=== PATIENT | male | born 1990 | race Caucasian/White ===

== ENCOUNTER 2022-10-10 11:27 | Emergency (ER) | payer MEDICAID, SELFPAY ==
[2022-10-10 11:57] VITALS: BP 134/87; PULSE 86; RESP 16; TEMP 36.8; O2SAT 99; BMI 21.6
--- NOTE | 2022-10-10 12:49 | US_ITS ---
WS: [id number] Exam: US gall bladder [id number] Date/Time of Exam: 10/10/2022 12:56 PM Reason For Exam: ruq pain The gallbladder is unremarkable. The common bile duct is not dilated and measures 1.6 mm at greatest diameter. Normal-appearing liver and right kidney. The pancreas is unremarkable. US/US gall bladder [id number] IMPRESSION: 1. Normal gallbladder ultrasound.
--- NOTE | 2022-10-10 12:49 | ED_ITS ---
HPI - Abdominal Pain General: Chief Complaint: Abdominal Pain Stated Complaint: N/V abd pain that comes and goes Time Seen by Provider: 10/10/22 12:44 Source: patient Mode of arrival: ambulatory Limitations: no limitations History of Present Illness: 32-year-old male states he had some lower abdominal pain and left lower quadrant he states his been much worse after he eats. He states he states it is sharp cramping pain right for eats its been lasting for 2 to 3 minutes that typically subsides he denies any pain currently had no fever no dysuria he had some slight vomiting and diarrhea. Associated Symptoms: Denies chills, diarrhea, fever(s), nausea and vomiting Review of Systems Const: Denies: fever(s), chills, body aches or change in appetite Eyes: Denies: blurry vision or eye discomfort ENMT: Reports: throat pain and dental pain Card: Denies: chest pain Resp: Denies: dyspnea GI: Reports: abdominal pain; Denies: nausea, vomiting or diarrhea Musc: Denies: neck pain or back pain Skin/Breast: Denies: rash Neuro: Denies: headache(s) PFSH ED PFSH: Social History Current gender identity: Male Physical Exam Const: COMMON NORMALS: no acute distress, patient oriented x3 and healthy appearing HENMT: COMMON NORMALS: normocephalic and atraumatic HEAD & SCALP: normocephalic and atraumatic Neck/C-Spine: COMMON NORMALS: full ROM and supple Chest: COMMONS NORMALS: normal inspection of the chest and normal palpation of entire chest wall Resp: COMMON NORMALS: normal respiratory effort, No retractions, No use of accessory muscles and clear to auscultation bilaterally AUSCULTATION: clear to auscultation bilaterally Cardio: COMMON NORMALS: regular rate, regular rhythm and No murmurs present (Cardio) RATE: regular rate RHYTHM: regular rhythm GI: COMMON NORMALS: Normal to inspection, nondistended, normoactive bowel rosibel nds present, Soft to palpation, non-tender and no masses PALPATION: Yes Soft to palpation Extremity: COMMON NORMALS: normal to inspection and full ROM Neuro: COMMON NORMALS: patient oriented x3, moves all extremities and no focal motor deficits Psych: COMMON NORMALS: mental status grossly normal, Normal thought process present and cooperative THOUGHT PROCESS: Normal thought process present Skin: COMMON NORMALS: no rashes or lesions noted and no wounds GENERAL SKIN EXAM: no rashes or lesions noted Course Vital Signs: Vital signs: Vital Signs Temperature 98.2 F 10/10/22 11:57 Pulse Rate 89 10/10/22 14:43 Respiratory Rate 17 10/10/22 14:30 Blood Pressure 135/84 10/10/22 14:43 Pulse Oximetry 99 10/10/22 14:43 Oxygen Delivery Me thod Room Air 10/10/22 13:13 MDM - Abdominal Pain Medical Decision Making Patient presents here with abdominal pain. CT scan does show a colitis no signs of ischemic bowel we will start him on Cipro Flagyl along with pain meds nausea medicine I did inform him not to drink alcohol he is on the Flagyl. We will get him follow-up with surgery as he likely needs a colonoscopy he is to return if worsening he understands agrees to plan. Medical Records I reviewed the patient's medical records. Lab Data I reviewed the patient's lab results. 10/10/22 13:08 10/10/22 13:08 Labs/Radiology: Radiology Impressions Gallbladder Ultrasound 10/10/22 12:49 IMPRESSION: 1. Normal gallbladder ultrasound. Abdomen/Pelvis CT 10/10/22 13:20 IMPRESSION: Ascending and transverse colitis. Probable infection or inflammatory bowel disease. Ischemia is unlikely but not unequivocally excluded. There is no sign of bowel necrosis. Laboratory Results WBC 14.0 10^3/uL (4.0-10.0) H 10/10/22 13:08 RBC 5.47 10^6/uL (4.1-5.3) H 10/10/22 13:08 Hgb 17.6 g/dL (11.7-16.6) H 10/10/22 13:08 Hct 50.9 % (42.0-52.0) 10/10/22 13:08 MCV 93.1 fl (80-94) 10/10/22 13:08 MCH 32.2 pg (28.0-34.0) 10/10/22 13:08 MCHC 34.6 g/dL (30.0-36.0) 10/10/22 13:08 RDW 12.2 % (12.1-15.1) 10/10/22 13:08 Plt Count 180 10^3/cmm (130-400) 10/10/22 13:08 MPV 10.0 fL (7.4-10.4) 10/10/22 13:08 Neut % (Auto) 86.1 % 10/10/22 13:08 Lymph % (Auto) 5.9 % 10/10/22 13:08 Knott % (Auto) 5.7 % 10/10/22 13:08 Eos % (Auto) 1.4 % 10/10/22 13:08 Baso % (Auto) 0.4 % 10/10/22 13:08 Neut # (Auto) 12.05 10^3/uL (1.8-7.7) H 10/10/22 13:08 Lymph # (Auto) 0.8 10^3/uL (0.8-4.8) 10/10/22 13:08 Knott # (Auto) 0.8 10^3/uL (0.2-0.9) 10/10/22 13:08 Eos # (Auto) 0.2 10^3/uL (0.0-0.8) 10/10/22 13:08 Baso # (Auto) 0.1 10^3/uL (0.0-0.1) 10/10/22 13:08 Nucleated RBC % (auto) 0 % 10/10/22 13:08 Nucleated RBCs # 0.0 /100WBC 10/10/22 13:08 Sodium 138 mmol/L (136-145) 10/10/22 13:08 Potassium 4.1 mmol/L (3.5-5.1) 10/10/22 13:08 Chloride 102 mmol/L (98-107) 10/10/22 13:08 Carbon Dioxide 25 mmol/L (22-29) 10/10/22 13:08 Anion Gap 15.1 (5-19) 10/10/22 13:08 BUN 7 mg/dL (6-20) 10/10/22 13:08 Creatinine 1.0 mg/dL (0.7-1.2) 10/10/22 13:08 GFR Calculation 86.6 mL/min (90-130) L 10/10/22 13:08 Glucose 93 mg/dL (65-115) 10/10/22 13:08 Calculated Osmolality 284 mOsm/kg (285-295) L 10/10/22 13:08 Calcium 9.0 mg/dL (8.5-10.5) 10/10/22 13:08 Total Bilirubin 0.6 mg/dL (0.15-1.2) 10/10/22 13:08 AST 21 U/L (0-40) 10/10/22 13:08 ALT 14 U/L (0-41) 10/10/22 13:08 Alkaline Phosphatase 103 U/L (40-130) 10/10/22 13:08 Total Protein 7.2 g/dL (6.6-8.7) 10/10/22 13:08 Albumin 4.7 g/dL (3.5-5.2) 10/10/22 13:08 Globulin 2.5 g/dL (1.3-4.6) 10/10/22 13:08 Lipase 43 U/L (13-60) 10/10/22 13:08 Urine Color Yellow (Yellow) 10/10/22 13:46 Urine Appearance Clear (CLEAR) 10/10/22 13:46 Urine pH 7 (5-7) 10/10/22 13:46 Ur Specific Beaver 1.010 (1.005-1.030) 10/10/22 13:46 Urine Protein Neg (Negative) 10/10/22 13:46 Urine Glucose (UA) Norm (Normal) 10/10/22 13:46 Urine Ketones Negative (Negative) 10/10/22 13:46 Urine Blood Neg (Negative) 10/10/22 13:46 Urine Nitrate Negative (Negative) 10/10/22 13:46 Urine Bilirubin Neg (Negative) 10/10/22 13:46 Urine Urobilinogen Neg mg/dL (Negative) 10/10/22 13:46 Ur Leukocyte Esterase Negative (Negative) 10/10/22 13:46 Discharge Plan Discharge Patient Disposition: Home Clinical Impression: Colitis Condition: Stable Prescriptions: New hydrocodone-acetaminophen 5-325 mg tablet 1 tab PO Q6H PRN (Reason: pain) Qty: 14 0RF metronidazole 500 mg tablet 500 mg PO Q8H 7 Days Qty: 21 0RF Cipro 500 mg tablet 500 mg PO BID Qty: 14 0RF ondansetron 4 mg tablet,disintegrating 4 mg PO Q6H PRN (Reason: nausea and vomiting) Qty: 14 0RF Discharge Orders: Discharge ED (Routine); Ordered 10/10/22 Ordered By: Adriana Ribeiro Referrals: Rock Johns DO [Physician] - 1-3 days Discharge Diet: Advance as tolerated Discharge Activity: Resume usual activity Patient Instructions: Colitis (ED), Opioid Safety Coding Level of Care Code ED Customer Success Specialist for Gualberto Monroe
[2022-10-10] MEDS: ondansetron 2 mg/ML SDV 2 mL 4 MG IVP (13:06)
[2022-10-10] MEDS: sodium chloride 0.9% 1,000 ML 999 ML IV (13:06)
[2022-10-10 13:13] VITALS: BP 131/87; PULSE 66; RESP 18; O2SAT 100
[2022-10-10 13:16] LABS: Basophils # 0.1 10^3/uL (0.0-0.1); Basophils % 0.4 %; Eosinophils # 0.2 10^3/uL (0.0-0.8); Eosinophils % 1.4 %; Hematocrit 50.9 % (42.0-52.0); Hemoglobin 17.6 g/dL (11.7-16.6); Lymphocytes # 0.8 10^3/uL (0.8-4.8); Lymphocytes % 5.9 %; Mean Corpuscular HGB Conc 34.6 g/dL (30.0-36.0); Mean Corpuscular Hemoglobin 32.2 pg (28.0-34.0); Mean Corpuscular Volume 93.1 fl (80-94); Monocytes # 0.8 10^3/uL (0.2-0.9); Monocytes % 5.7 %; Neutrophils # 12.05 10^3/uL (1.8-7.7); Neutrophils % 86.1 %; Nucleated Red Blood Cells % 0 %; Platelet Count 180 10^3/cmm (130-400); Red Blood Count 5.47 10^6/uL (4.1-5.3); Red Cell Distribution Width 12.2 % (12.1-15.1)
--- NOTE | 2022-10-10 13:20 | CTR_ITS ---
PROCEDURE INFORMATION: Exam: CT Abdomen And Pelvis With Contrast Exam date and time: 10/10/2022 1:55 PM Age: 32 years old Clinical indication: Vomiting; Abdominal pain; Epigastric; Additional info: Abd pain TECHNIQUE: Imaging protocol: Computed tomography of the abdomen and pelvis with contrast. Radiation optimization: All CT scans at this facility use at least one of these dose optimization techniques: automated exposure control; mA and/or kV adjustment per patient size (includes targeted exams where dose is matched to clinical indication); or iterative reconstruction. Contrast material: OMNI 350; Contrast volume: 100 ml; Contrast route: INTRAVENOUS (IV); REPORTING DATA: Count of CT and Cardiac NM exams in prior 12 months: This patient has received 0 known CTs and 0 known cardiac nuclear medicine studies in the 12 months prior to the current study. COMPARISON: US gall bladder [id number] 10/10/2022 1:14 PM RADIATION DOSE METRICS: Total DLP (mGy-cm): 421.21 FINDINGS: Lungs: Lung bases are clear. Liver: The liver is normal. Gallbladder and bile ducts: The gallbladder is normal. There is no biliary dilation. Pancreas: The pancreas is unremarkable. Spleen: The spleen is unremarkable. Adrenal glands: The adrenal glands are unremarkable. Kidneys and ureters: The kidneys are unremarkable. No hydronephrosis or stones. No ureteral dilation. Stomach and bowel: The stomach is decompressed, preventing meaningful evaluation of wall thickness. The small bowel is nondilated. Jejunal wall thickening is likely physiologic related to muscular contraction. There is diffuse mucosal thickening and mild pericolonic edema involving the ascending and transverse colon diffusely. The descending and sigmoid colon is spared. The rectum is unremarkable. Appendix: The appendix is normal. Intraperitoneal space: Trace pelvic free fluid. No intraperitoneal free air. Vasculature: The aorta is unremarkable. There is no aneurysm. The portal, splenic and superior mesenteric veins are patent. Lymph nodes: There is no lymphadenopathy in the retroperitoneum, mesentery, pelvis or inguinal regions. Urinary bladder: There is mild diffuse bladder wall thickening suggesting muscular hypertrophy. Reproductive: The prostate and seminal vesicles are unremarkable. Bones/joints: There are bilateral L3 pars defects without spondylolisthesis. Spinal alignment is normal. Vertebral body height is maintained. No acute fracture. There is a small central disc protrusion at L5-S1. Soft tissues: The abdominal wall is intact. CT/CT abdomen pelvis w con* [id number] IMPRESSION: Ascending and transverse colitis. Probable infection or inflammatory bowel disease. Ischemia is unlikely but not unequivocally excluded. There is no sign of bowel necrosis.
[2022-10-10 13:34] LABS: Alanine Aminotransferase 14 U/L (0-41); Albumin Level 4.7 g/dL (3.5-5.2); Alkaline Phosphatase 103 U/L (40-130); Anion Gap 15.1 (5-19); Aspartate Amino Transferase 21 U/L (0-40); Blood Urea Nitrogen 7 mg/dL (6-20); Carbon Dioxide 25 mmol/L (22-29); Chloride 102 mmol/L (98-107); Creatinine Clr Calc Pharmacy 109.9542; Globulin 2.5 g/dL (1.3-4.6); Glomerular Filtration Rate 86.6 mL/min (90-130); Glucose 93 mg/dL (65-115); Lipase 43 U/L (13-60); Osmolality Calculated 284 mOsm/kg (285-295); Potassium 4.1 mmol/L (3.5-5.1); Sodium 138 mmol/L (136-145); Total Bilirubin 0.6 mg/dL (0.15-1.2); Total Protein 7.2 g/dL (6.6-8.7)
[2022-10-10 13:39] VITALS: BP 139/88; O2SAT 100
[2022-10-10 14:00] VITALS: BP 139/88
[2022-10-10] MEDS: iohexol 350 mg/mL 500 mL Btl (per mL) IV (14:00)
[2022-10-10 14:24] LABS: Add Urine Microscopic? NO; Charge for UA Resulting for Rev
[2022-10-10 14:30] VITALS: PULSE 85; RESP 17; O2SAT 99
[2022-10-10 14:32] LABS: Bilirubin Urine Neg (Negative); Blood Urine Neg (Negative); Glucose Urine UA Norm (Normal); Ketones Urine Negative (Negative); Leukocyte Esterase Urine Negative (Negative); Nitrate Urine Negative (Negative); Protein Urine Neg (Negative); Urine Appearance Clear (CLEAR); Urine Color Yellow (Yellow); Urobilinogen Urine Neg (Negative); pH Urine 7 (5-7)
[2022-10-10] MEDS: ciprofloxacin 500 mg Tablet PO (14:34)
[2022-10-10] MEDS: metroNIDAZOLE 500 MG Tablet PO (14:34)
[2022-10-10 14:43] VITALS: BP 135/84; PULSE 89; O2SAT 99
--- NOTE | 2022-10-13 08:23 | DCPLANNER ---
Addendum entered by Cate Reddy 10/15/22 14:39: restaurant floor manager called [facility] General Surgery to confirm if clinic had received patients information. restaurant floor manager was told that the clinic had received patients information, and that it will be reviewed, clinic will call patient with appointment information. Addendum entered by Cate Reddy 10/13/22 14:14: restaurant floor manager received the following message from general surgery front office regarding follow up appointment: Patient has [facility], please refer elsewhere restaurant floor manager spoke with patient and explained this, patient stated that he would like to be referred to [facility] in [place]. restaurant floor manager faxed patients information to [facility] general surgery. Patients information will be reviewed, clinic will call patient with appointment information. Original Note: restaurant floor manager had message to schedule a follow up appointment for patient with general surgery. restaurant floor manager sent patients information to the front office staff at general surgery. Patients information will be printed and reviewed. Clinic will call patient with appointment information.
== END 2022-10-10 14:44 | disposition home or self-care (01) ==
PROVIDERS: Emergency Provider Emergency Medicine; PCP Family Medicine
DX: K52.9 Noninfective gastroenteritis and colitis, unspecified (principal)
CPT/HCPCS: 74177; 76705; 80053; 81003; 83690; 85025; 96361; 96374; 99285; J2405; J7030; Q9967

== ENCOUNTER 2022-10-27 13:13 | Emergency (ER) | payer MEDICAID, SELFPAY ==
[2022-10-27 13:17] VITALS: BP 135/90; PULSE 68; RESP 12; TEMP 36.7; O2SAT 99; BMI 21.6
--- NOTE | 2022-10-27 13:25 | XR_ITS ---
WS: [id number] EXAMINATION: XR hand RT min 3V* [id number] REASON FOR EXAM: Fall injury, right hand pain COMPARISON: None available. ORDER DATE: 10/27/2022 1:28 PM FINDINGS: There is an acute intra-articular very comminuted fracture involving the base of the fifth metacarpal with some of the components slightly dorsally displaced. There is adjacent soft tissue edema.. There are no specific soft tissue abnormalities. XR/XR hand RT min 3V* [id number] IMPRESSION: Comminuted fracture of the proximal fifth metacarpal at the carpometacarpal art iculation
--- NOTE | 2022-10-27 13:42 | W.ED.EXTPRO ---
HPI - Extremity Problem General: Chief complaint: Extremity Injury, Upper Stated complaint: Right hand injury Time Seen by Provider: 10/27/22 13:42 History of Present Illness: 32-year-old gentleman presenting with hand pain. He notes falling off a ladder approximately 4 feet 2 days ago and landed on his right arm to catch himself. No head strike or loss of consciousness. Immediately had pain which is subsequently persisted. No numbness or tingling. No open fracture. Denies history of similar. Has tried oral medication with only modest improvement. No other specific changes in health, exacerbating, or alleviating factors identified. Onset (ago): day(s) Pain Consistency: constant Quality: aching and sharp Radiation: none Exacerbating factors: range of motion and palpation Associated symptoms: Reports no associated symptoms Review of Systems General: Reports: 10 or more systems reviewed and unremarkable except in HPI and below PFSH ED PFSH: Medical History (Updated 11/08/22 @ 18:52 by Zhen Kauffman MD) No significant past medical history Surgical History (Updated 11/08/22 @ 18:52 by Zhen Kauffman MD) No significant past surgical history Social History Current gender identity: Male Physical Exam Const: COMMON NORMALS: alert GENERAL APPEARANCE: cooperative and well developed HENMT: COMMON NORMALS: normocephalic and atraumatic HEAD & SCALP: normocephalic and atraumatic Eye: COMMON NORMALS: conjunctivae normal CONJUNCTIVA: Yes conjunctivae normal SCLERA: sclerae normal Neck/C-Spine: COMMON NORMALS: supple GENERAL: Yes trachea midline Resp: COMMON NORMALS: normal respiratory effort EFFORT & INSPECTION: Yes able to speak in complete sentences Cardio: COMMON NORMALS: regular rate and regular rhythm RATE: regular rate RHYTHM: regular rhythm Extremity: NARRATIVE EXTREMITY EXAM: Right fifth metacarpal head tenderness palpation. CMS intact. GENERAL: Yes normal exam except as noted and No edema Neuro: COMMON NORMALS: moves all extremities SENSORIUM/ORIENTATION: Yes alert and No Orientation impaired Psych: COMMON NORMALS: mental status grossly normal and Normal thought process present THOUGHT PROCESS: Normal thought process present Course Vital Signs: Vital signs: Vital Signs Temperature 98.0 F 10/27/22 13:17 Pulse Rate 68 10/27/22 13:17 Respiratory Rate 17 10/27/22 14:42 Blood Pressure 135/90 10/27/22 13:17 Pulse Oximetry 98 10/27/22 14:42 Oxygen Delivery Me thod Room Air 10/27/22 13:17 MDM - Extremity (Nontraumatic) Medical Decision Making 32-year-old gentleman presenting with continued hand pain after injury. Ecchymosis and tenderness along the fifth metacarpal. No proximal injuries. CMS intact. X-ray demonstrates fifth metacarpal fracture. Patient placed in ulnar gutter splint and satisfactory for outpatient management. The results of ED evaluation were discussed with the patient including prescriptions and/or symptomatic cares (if applicable) including appropriate and responsible use, followup plan, and return precautions. The patient verbalized understanding and felt safe for discharge. Medical Records I reviewed the patient's medical records. Lab Data I reviewed the patient's lab results. Radiology Impressions Hand X-Ray 10/27/22 13:25 IMPRESSION: Comminuted fracture of the proximal fifth metacarpal at the carpometacarpal articulation Discharge Plan Discharge Patient Disposition: Home Clinical Impression: Fracture of fifth metacarpal bone of right hand Condition: Stable Prescriptions: No Action acetaminophen [Tylenol] 325 mg tablet 325 mg PO QID PRN (Reason: Pain) (DME) Fast form ulnar gutter splint See Rx Instructions .Route .MEDSUPPLY Qty: 1 0RF Rx Instructions: As directed ondansetron 4 mg tablet,disintegrating 4 mg PO Q6H PRN (Reason: nausea and vomiting) Qty: 14 0RF oxycodone 5 mg tablet 5 mg PO Q4H PRN (Reason: pain) Qty: 20 0RF Discharge Orders: Discharge ED (Routine); Ordered 10/27/22 Ordered By: Zhen Kauffman Discharge Diet: Usual diet Discharge Activity: Limit activity as instructed Patient Instructions: Hand Fracture (ED), Splint Care (ED), Opioid Safety Activity Restrictions/Additional Instructions: Thank you for visiting the emergency department. You were seen and evaluated for hand pain after a fall. You are found to have a fracture at the base of the fifth metacarpal bone. You will be placed in a splint. I will prescribe oxycodone for severe pain, use this cautiously as it is an opioid. You may use [id number] medications such as acetaminophen and ibuprofen for pain however please do not exceed the daily recommended dosage as listed on the packaging and please keep in mind that many namebrand medications contain the same active ingredients. Please avoid these medications if previously instructed to do so by another physician due to other underlying medical condition. I will message case management for follow-up with orthopedics. Please wear the splint until further evaluation by orthopedics and further instructions. Return to the emergency department for uncontrolled pain, loss of sensation or movement, bluing of the tips of the fingers, or anything else that you are concerned about and feel needs emergency department evaluation. Coding Level of Care Code ED Motor Coach Driver for Gualberto Monroe
[2022-10-27 14:42] VITALS: RESP 17; O2SAT 98
[2022-10-27] MEDS: oxyCODONE 5 mg IR Tab/Cap PO (14:42)
--- NOTE | 2022-10-27 15:12 | PC.SOCIAL ---
Addendum entered by Cate Reddy 11/14/22 11:18: Patient had a follow up appointment scheduled with Dr. Ball at ortho - patient did attend appointment. Original Note: Ortho Referral Messaged ortho for referral appt; clinic to contact patient with appt date/time.
== END 2022-10-27 14:20 | disposition home or self-care (01) ==
PROVIDERS: Emergency Provider Emergency Medicine
DX: S62.316A Displaced fracture of base of fifth metacarpal bone, right hand, initial encounter for closed fracture (principal); W11.XXXA Fall on and from ladder, initial encounter
CPT/HCPCS: 29125; 73130; 99283

== ENCOUNTER 2022-10-29 14:16 | Outpatient (CLI) | payer MEDICAID, SELFPAY | END 2022-10-29 14:17 | disposition home or self-care (01) | LOC: SPT 14:49 | PROVIDERS: Visit Provider Specialist | DX: Z46.89 Encounter for fitting and adjustment of other specified devices (principal); S62.306D Unspecified fracture of fifth metacarpal bone, right hand, subsequent encounter for fracture with routine healing; X58.XXXD Exposure to other specified factors, subsequent encounter | CPT/HCPCS: 97760; L3984 ==

== ENCOUNTER 2022-11-05 08:49 | Day surgery (SDC) | payer MEDICAID, SELFPAY ==
[2022-11-04 11:46] VITALS: BMI 22.3
[2022-11-05] VITALS (10 sets, daily range): BP systolic 116–145; BP diastolic 81–94; PULSE 70–133; RESP 16–18; TEMP 36.1–36.4; O2SAT 97–100
--- NOTE | 2022-11-05 | XR_ITS ---
WS: [id number] Exam: XR hand RT 2V [id number] Date/Time of Exam: 11/05/2022 12:00 AM Reason For Exam: RIGHT fifth metacarpal reduction Intraoperative AP and lateral images of the medial right hand are submitted. The images depict pin fi xation involving a comminuted fracture of the proximal fifth metacarpal. Alignment is significantly i mproved when compared to prior study 10/27/2022.
[2022-11-05] MEDS: acetaminophen 1,000 MG/100 ML PIGGYBACK 400 MG IV (09:11)
[2022-11-05] MEDS: sodium chloride 0.9% 1,000 ML 30 ML IV (09:12)
[2022-11-05] MEDS: ketorolac 30 mg/mL INJ IVP (09:12)
--- NOTE | 2022-11-05 10:14 | ANES.PREANE2 ---
Pre-Anesthetic Assessment Height/Weight: Height 1.8 m Weight 72.575 kg Temp Pulse Resp BP Pulse Ox O2 Del Method 97.3 F L 70 18 130/88 99 Room Air 11/05/22 08:56 11/05/22 08:56 11/05/22 08:56 11/05/22 08:56 11/05/22 08:56 11/05/22 09:18 Preop Diagnosis: Right fifth metacarpal fracture Operation Date: 11/05/22 10:25 Proposed Procedures p Right Fifth Metacarpal Closed Reduction Percutaneous Pinning vs Open Reduction Internal Fixation. 22189,S62.316A ,T14.8XXA(Right) - Uday Arlene, DO Familial anesthetic complications: Nonw Was Beta Court taken within 24 hours: N/A Was Clonidine taken within 24 hours: N/A Last intake: Intake Last Liquid Date 11/05/22 Last Liquid Time 00:00 Last Solid Date 11/04/22 Last Solid Time 23:00 Social Alcohol (up to 6 beers a night) and Tobacco Exam alert, oriented x 3, clear to auscultation bilaterally and regular rate & rhythm Airway Mallampati: Class II Dentition: full Anesthetic Plan ASA status: 2 Anesthesia: General Risk of > 500 ml blood loss (7ml/kg in children): No Medications/Allergies Home Medications Medication Instructions Recorded Confirmed Last Taken Type ondansetron 4 mg disintegrating 4 mg PO Q6H PRN nausea and 10/10/22 11/04/22 Unknown Rx tablet vomiting #14 tabs oxycodone 5 mg tablet 5 mg PO Q4H PRN pain #20 tabs 10/27/22 11/04/22 11/02/22 Rx Fast form ulnar gutter splint #1 ea 10/29/22 10/31/22 Unknown Rx acetaminophen 325 mg tablet 325 mg PO QID PRN Pain 10/31/22 11/04/22 11/04/22 History (Tylenol) Allergies Allergy/AdvReac Type Severity Reaction Status Date / Time No Known Allergies Allergy Verified 11/05/22 09:04 Current Medications Generic Name Dose Route Start Last Admin Trade Name Freq PRN Reason Stop Dose Admin Sodium Chloride 1,000 mls @ 30 mls/hr 11/05/22 09:00 11/05/22 09:12 Sodium Chloride 0.9% IV 11/06/22 08:59 30 mls/hr .Q24H TINO Administration PFSH Anesthesia Social History Current gender identity: Male Data Anesthesia Cardiac Studies: No Data to Display
[2022-11-05] MEDS: midazolam 1 mg/mL INJ 2 mL 2 MG IVP (10:22)
--- NOTE | 2022-11-05 10:54 | W.PM.OPSUD ---
Surgery/Procedure H&P Update DATE OF PROCEDURE: November 05, 2022 DATE H&P PERFORMED: 10/31/22 CHANGES TO PREVIOUS DOCUMENTATION: None. No changes from previous office visit on 10/31/2022. Patient's understands risk benefits complication alternatives with surgery and elects proceed with surgical intervention all questions answered. PREOP DIAGNOSIS: Right fifth metacarpal fracture PRIMARY INDICATION FOR PROCEDURE: Right fifth metacarpal fracture PLANNED PROCEDURE: Operation Date: 11/05/22 10:25 Proposed Procedures p Right Fifth Metacarpal Closed Reduction Percutaneous Pinning vs Open Reduction Internal Fixation. 65688,S62.316A ,T14.8XXA(Right) - Uday Jacobs DO
[2022-11-05] MEDS: ceFAZolin 2,000 MG in sodium chloride 0.9% (plus) 50 ML 100 MG IV (10:59)
[2022-11-05] MEDS: lidocaine 2% INJ 20 mL 7 ML INJECTION (11:40)
[2022-11-05] MEDS: HYDROmorphone 1 mg/mL INJ 1 mL 0.5 MG IVP ×2 (12:25→13:03)
--- NOTE | 2022-11-05 13:00 | PM.OP2 ---
Brief Operative Note Date of procedure: 11/05/22 Pre-op diagnosis: Right fifth metacarpal base fracture Post-op diagnosis: same Procedure Done: Right fifth metacarpal open reduction and internal fixation Surgeon: Uday Jacobs Estimated blood loss (mL): 2 Complications: none Post-op Plan: Patient taken to PACU pain controlled. Will receive appropriate discharge instructions as well as pain medication postoperatively. Patient to follow-up in the orthopedic office in 2 weeks. Nonweightbearing right hand. Condition: stable Disposition: same day Coding Level of Care Code Acute Code for Gualberto Monroe
--- NOTE | 2022-11-05 13:05 | PM.PACU ---
PACU note Narrative: Patient taken to PACU in stable condition recovering well pain controlled. Patient has ulnar gutter splint on in place limits examination. He is able to subtly wiggle his fingers. Fingertips are warm and well-perfused brisk capillary refill less than 2 seconds. Patient did receive local anesthesia and has decreased sensation of the small ring finger. Exam: awake Disposition: discharged
--- NOTE | 2022-11-05 13:10 | P.OP_ITS ---
Operative Report Date of procedure: October Pre-op diagnosis: Preop Diagnosis Right fifth metacarpal fracture Post-op diagnosis: Same Procedure done: Right fifth metacarpal fracture open reduction internal fixation Implants: 4 x0.45 k wires Surgeon: Uday Jacobs DO Estimated blood loss: 2mL 16mins IV fluids: 1000mL Complications: none Findings: See operative report narrative Condition: stable Disposition: same day Brief History: Patient is a pleasant 32yoM with comminuted intra-articular right fifth metacarpal base fracture. Patient had fallen off a ladder and sustained this injury. Given the significant intra-articular involvement multiple comminution and shortening we talked about treatment options as far as nonoperative and operative intervention. At this point in time through shared decision-making he would like to proceed with surgical intervention with plan for right fifth metacarpal CRPP versus ORIF. Patient understands the ins and outs of the procedure as well as the risk benefits complications and alternatives of surgery. Understanding his risk for surgery he elects to proceed with surgical intervention. All questions answered. Procedure: Patient was seen and evaluated in the preoperative holding area. Consent was reviewed and signed with patient. Correct extremity was then marked. Patient was then seen and evaluated by the anesthesia department once cleared for surgery patient was taken back to the operative suite. Transported on the OR table. All bony prominences were well-padded patient was appropriately secured to the bed. Armboard applied to the right upper arm. Nonsterile tourniquet applied to right upper arm. Patient then underwent anesthesia per the anesthesia department. Once appropriately anesthetized the right upper extremity was then prepped and draped in standard orthopedic fashion. Final timeout was performed. Patient received appropriate preoperative antibiotics. Esmarch tourniquet was used exsanguinate the right upper extremity and tourniquet was insufflated to 250 mmHg. 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 There was a significantly noticed depressed fragment as well as multiple radial and ulnar based fragments that were significantly displaced still. At this point in time while maintaining length by utilized a 045 K wire and while holding the length of the fourth metacarpal pin this to the fifth metacarpal to hold my length. Next I utilized a 0.062 K wire and attempts to percutaneously tamp down the depressed intra- articular fracture fragment this was unsuccessful and as result I switched to making a small incision just to accommodate for a [place] and I bluntly utilized a [place] into the dorsal fracture fragment and then tamped down with my [place] the intra-articular fracture fragment. While holding this down I then advanced 2 more 0.045 K wires through the base of the fifth metacarpal into the fourth and third metacarpal for added stability as well as to hold the intra-articular fragment down. At this point in time I was satisfied with my fracture fixation and now I wanted to place my fourth and final K wire across the fifth CMC joint to hold for fracture stability I then in an oblique fashion drilled from the base of the fifth metacarpal into the base of the hamate. This had excellent fixation. And this completed my construct. I was satisfied with the fifth metacarpal base fracture reduction and fixation. Hand was taken through range of motion and confirmed appropriate placement of K wire pins as well as stable reduction. Tourniquet was deflated. Hemostasis satisfactory. I then closed the small incision site with an interrupted nylon stitch. Pins were then subsequently bent cut and capped and were covered with Xeroform 4 x 4's fluffs Dora wrap Curlex and a soft roll and an ulnar gutter splint was then applied with an [place] wrap. Patient was then awakened from anesthesia and taken to PACU in stable condition. Disposition : patient was taken to PACU in stable condition recovering well. Patient will receive appropriate discharge instructions as well as pain medication postoperatively. Patient will follow-up in the orthopedic office in 2 weeks. Be nonweightbearing to the right hand. Maintain splint until follow-up. Patient understands and agrees with current plan. All questions answered.
[2022-11-05] MEDS: oxyCODONE 5 mg IR Tab/Cap PO (13:18)
--- NOTE | 2022-11-05 15:57 | ANE.PACU2 ---
Inpatient post-anesthesia follow up: Airway intact: Yes Vital signs: Temperature 97.5 F Pulse Rate 75 Respiratory Rate 16 Blood Pressure 132/86 Pulse Oximetry 99 Oxygen Delivery Me thod Room Air Oxygen Flow Rate Fraction of Inspir ed Oxygen Hydration adequate: Yes Nausea and vomiting: No Pain level: 1 Mental status: Baseline
== END 2022-11-05 13:45 | disposition home or self-care (01) ==
PROVIDERS: PCP Family Medicine; Visit Provider Student in an Organized Health Care Education/Training Program
PROC: (CPT 26615; principal; 2022-11-05 10:15)
DX: S62.316A Displaced fracture of base of fifth metacarpal bone, right hand, initial encounter for closed fracture (principal); W11.XXXA Fall on and from ladder, initial encounter; Z79.891 Long term (current) use of opiate analgesic
CPT/HCPCS: 26615; 73120; 76000; C1713; J0131; J0690; J1100; J1170; J1885; J2250; J2405; J2704; J2795; J3010; J3490; J7030

== ENCOUNTER → 2022-11-19 14:02 | Outpatient (BNVA) | payer MEDICAID, SELFPAY | PROVIDERS: PCP Family Medicine; Visit Provider Nurse Practitioner Family | DX: Z98.890 Other specified postprocedural states (principal); S62.306D Unspecified fracture of fifth metacarpal bone, right hand, subsequent encounter for fracture with routine healing; X58.XXXD Exposure to other specified factors, subsequent encounter | CPT/HCPCS: 73130 ==

== ENCOUNTER → 2022-12-04 07:22 | Outpatient (BNVA) | payer MEDICAID, SELFPAY | PROVIDERS: PCP Family Medicine; Visit Provider Student in an Organized Health Care Education/Training Program | DX: Z98.890 Other specified postprocedural states; S62.316A Displaced fracture of base of fifth metacarpal bone, right hand, initial encounter for closed fracture; X58.XXXA Exposure to other specified factors, initial encounter | CPT/HCPCS: 73130 ==

== ENCOUNTER 2022-12-04 09:30 | Outpatient (CLI) | payer MEDICAID, SELFPAY | END 2022-12-04 09:31 | disposition home or self-care (01) | LOC: SPT 09:31 | PROVIDERS: PCP Family Medicine; Visit Provider Student in an Organized Health Care Education/Training Program | DX: Z46.89 Encounter for fitting and adjustment of other specified devices (principal); Z98.890 Other specified postprocedural states | CPT/HCPCS: 97760; L3984 ==

== ENCOUNTER → 2022-12-16 09:54 | Outpatient (BNVA) | payer MEDICAID, SELFPAY | PROVIDERS: PCP Family Medicine; Visit Provider Student in an Organized Health Care Education/Training Program | DX: S62.306A Unspecified fracture of fifth metacarpal bone, right hand, initial encounter for closed fracture (principal); X58.XXXA Exposure to other specified factors, initial encounter; Z98.890 Other specified postprocedural states; Z96.9 Presence of functional implant, unspecified | CPT/HCPCS: 73130 ==